=== PATIENT | male | born 1960 | race Caucasian/White ===

== ENCOUNTER 2017-02-19 20:56 | Emergency (ER) | payer OTHER ==
[~2017-02-19] VITALS: Ht 170.2 cm; Wt 82.6 kg
[~2017-02-19 20:56] MED LIST: BACTRIM DS 8001 TAB PO; KEFLEX500 MG PO
--- NOTE | 2017-02-19 21:28 | ED ANKLE/FOOT INJURY COMPLAINT ---
History of Present Illness General Chief Complaint: Lower Extremity Problems Stated Complaint: BLISTER ON LEFT FOOT X 2 WEEKS Source: patient, old records Exam Limitations: no limitations Vital Signs & Intake/Output Vital Signs & Intake/Output Vital Signs Date Time Temp Pulse Resp B/P B/P Pulse O2 O2 Flow FiO2 Mean Ox Delivery Rate 02/19 2100 96.9 58 18 164/74 96 Room Air Allergies Coded Allergies: NO KNOWN ALLERGIES (02/19/15) Reconcile Medications Cephalexin (Keflex) 500 MG CAPSULE 1 TAB PO 4 TIMES/DAY CELLULITIS Sulfamethoxazole/Trimethopri (Bactrim Ds 800 MG-160 MG) 1 TAB TAB 1 TAB PO BID CELLLULITIS Triage Note: PT TO ED C/O BLISTER TO LEFT HEEL FOR 2 WEEKS. PMH IDDM, STATES GOT NEW DIABETIC SHOES AND WORE THEM TO [facility] FOR A JOB INTERVIEW. GOT THE BLISTER THAT DAY. NOW SLIGHTLY RED AROUND EDGES. AFEBRILE IN TRIAGE. STATES DIABETES IS WELL CONTROLLED. AIC "AROUND 9" CONTROLLED. AIC "AROUND 9" Triage Nurses Notes Reviewed? yes HPI: Patient presents for evaluation of a blister to his left heel. The blisters started when he wore new boots. Patient is diabetic. Patient has been cleaning and bandaging a 3 day however is now starting to turn red around the area. He has a throbbing pain to the area. There is no radiation of pain. There is no aggravating or medicated patches. He rates the pain as 4 out of 10. There are no fevers or chills. Past History Travel History Traveled to [place] past 21 day No Medical History Any Pertinent Medical History? see below for history Neurological: NONE EENT: NONE Cardiovascular: hypertension, hyperlipidemia Respiratory: NONE Gastrointestinal: NONE Hepatic: NONE Renal: NONE Musculoskeletal: NONE Psychiatric: NONE Endocrine: diabetes Blood Disorders: NONE Cancer(s): NONE Surgical History Surgical History: non-contributory Psychosocial History What is your primary language Bangladeshi Tobacco Use: Never used ETOH Use: occasional use Illicit Drug Use: denies illicit drug use Family History Hx Contributory? No Review of Systems Review of Systems Constitutional: Reports: no symptoms. Respiratory: Reports: no symptoms. Cardiovascular: Reports: no symptoms. GI: Reports: no symptoms. Musculoskeletal: Reports: see HPI. Skin: Reports: see HPI. Neurological/Psychological: Reports: no symptoms. Immunologic/Allergic: Reports: no symptoms. Physical Exam Physical Exam General Appearance: well developed/nourished, alert, awake Head: atraumatic, normal appearance Eyes: Bilateral: PERRL, EOMI. Neck: normal inspection, supple, full range of motion Cardiovascular/Respiratory: normal breath sounds, normal peripheral pulses, regular rate/rhythm, no respiratory distress Leg/Knee/Thigh Left: normal range of motion, normal inspection Leg/Knee/Thigh Right: normal range of motion, normal inspection Foot Left: INDURATED BLISTER TO LEFT HEEL WITH SURROUNDING ERYTHEMA. NO TENDERNESS OUTSIDE F THE ERYTHEMATOUS AREA Neuro/Vascular: normal motor function, normal sensation Progress Differential Diagnosis: DIABETIC FOOT WITH ULCER Plan of Care: Orders Procedure Date/time Status BLOOD CULTURE 02/20 2128 Active URINALYSIS 02/20 2128 Active COMPREHENSIVE METABOLIC PANEL 02/20 2128 Complete CBC WITHOUT DIFFERENTIAL 02/20 2128 Complete Laboratory Tests 02/19/172135: Anion Gap 11, Estimated GFR > 60, BUN/Creatinine Ratio 23.3, Glucose 202 H, Calcium 9.8, Total Bilirubin 0.6, AST 47, ALT 56, Alkaline Phosphatase 70, Total Protein 7.6, Albumin 4.5, Globulin 3.1, Albumin/Globulin Ratio 1.5, CBC w Diff NO MAN DIFF REQ, RBC 5.67, MCV 71.2 L, MCH 23.5 L, RDW 14.3, MPV 8.1, Gran % 65.4, Lymphocytes % 23.9, Monocytes % 7.0, Eosinophils % 2.8, Basophils % 0.9, Absolute Granulocytes 5.7, Absolute Lymphocytes 2.1, Absolute Monocytes 0.6, Absolute Eosinophils 0.2, Absolute Basophils 0.1, PUBS MCHC 33.0 Microbiology 02/19 2149 BLOOD: Blood Culture - RECD 02/20 2136 BLOOD: Blood Culture - RECD Departure Departure Disposition: HOME OR SELF CARE Condition: Stable Clinical Impression Primary Impression: Diabetic foot ulcer Referrals: NOELLE POND,BIBIANA DOZIER MD,CHINO Gupta (PCP/Family) Additional Instructions: TAKE ANTIBIOTICS PRECRIBED FOLLOW UP WITH DR. DRAKE RETURN IF YOU DEVELOP FEVERS, REDNESS SPREADS OR FOR ANY CONCERNS Departure Forms: Customer Survey General Discharge Information Prescriptions: Current Visit Scripts Amoxicillin/Potassium Clav (Augmentin 875-125 Tablet) 1 TAB PO BID #20 TAB
[2017-02-19 21:50] LABS: ABSOLUTE BASOPHIL COUNT 0.1 /CUMM (0.0-0.2); ABSOLUTE EOSINOPHIL COUNT 0.2 /CUMM (0.0-0.7); ABSOLUTE GRANULOCYTE CT 5.7 /CUMM (1.4-6.5); ABSOLUTE LYMPH COUNT 2.1 /CUMM (1.2-3.4); ABSOLUTE MONOCYTE COUNT 0.6 /CUMM (0.10-0.60); BASOPHIL % 0.9 % (0.0-2.0); EOSINOPHIL % 2.8 % (0-5); GRANULOCYTE % 65.4 % (42.2-75.2); HEMATOCRIT 40.3 % (42-52); MEAN CORPUSCULAR HGB 23.5 PG (27.0-31.0); MEAN CORPUSCULAR VOLUME 71.2 FL (80.0-94.0); MEAN PLATELET VOLUME 8.1 FL (7.4-10.4); PLATELET COUNT 270 /CUMM (130-400); RBC DISTRIBUTION WIDTH 14.3 % (11.5-14.5); RED BLOOD CELL CT 5.67 /CUMM (4.70-6.10); WHITE BLOOD CELL COUNT 8.6 /CUMM (4.8-10.8)
[2017-02-19] MEDS ORDERED: AUGMENTIN 875-1 EACH PO (23:01)
[2017-02-19 23:03] VITALS: BP 152/70
== END 2017-02-19 23:21 ==
LOC: ERH 20:56
PROVIDERS: Emergency Medicine
DX: E10.621 Type 1 diabetes mellitus with foot ulcer (principal); L97.529 Non-pressure chronic ulcer of other part of left foot with unspecified severity; X58.XXXA Exposure to other specified factors, initial encounter; Y92.9 Unspecified place or not applicable; Y93.9 Activity, unspecified
CPT/HCPCS: 87040; 96361; 96374